=== PATIENT | male | born 1990 | race Caucasian/White ===

== ENCOUNTER 2017-01-04 16:42 | Emergency (ER) | payer OTHER ==
[~2017-01-04] VITALS: Ht 180.3 cm; Wt 81.6 kg
[2017-01-04 16:49] VITALS: BP 144/66
[2017-01-04] MEDS ORDERED: LIDOCAINE 1%, 20ML SQ ONE (17:00)
[2017-01-04] MEDS ORDERED: LIDOCAINE 1%, 20ML ONE (17:20)
[2017-01-04] MEDS ORDERED: BUPIVACAINE 0.25% ONE (17:20)
[2017-01-04] MEDS ORDERED: DIPH,PERTUSS(ACELL),TET VAC/PF 0.5 ML IM-VACC ONE ×2 (17:28→17:30)
[2017-01-04] MEDS ORDERED: BUPIVACAINE 0.25% INFIL ONE (17:30)
== END 2017-01-04 18:20 | disposition home or self-care (01) ==
LOC: ED 18:14
DX: S61.011A Laceration without foreign body of right thumb without damage to nail, initial encounter (principal); Z88.5 Allergy status to narcotic agent; Z88.6 Allergy status to analgesic agent; W45.8XXA Other foreign body or object entering through skin, initial encounter; Y93.89 Activity, other specified; Y92.098 Other place in other non-institutional residence as the place of occurrence of the external cause; Y99.8 Other external cause status
CPT/HCPCS: 64450; 90471; 90715

== ENCOUNTER 2018-02-04 07:10 | Emergency (ER) | payer OTHER ==
[~2018-02-04] VITALS: Ht 180.3 cm; Wt 93.6 kg
[2018-02-04 07:12] VITALS: BP 144/89
[2018-02-04] MEDS ORDERED: IBUPROFEN 800 MG TABLET ONE (08:22)
[2018-02-04] MEDS ORDERED: IBUPROFEN 800 MG TABLET PO PRN (08:30)
[2018-02-04] MEDS ORDERED: KETOROLAC 30 MG/1 ML IM ONE (08:30)
== END 2018-02-04 09:48 | disposition home or self-care (01) ==
LOC: ED 09:13
DX: R07.89 Other chest pain (principal); M94.0 Chondrocostal junction syndrome [Tietze]
CPT/HCPCS: 71046; 93005; 99284